=== PATIENT | male | born 2000 | race Hispanic/Latino ===

== ENCOUNTER 2020-07-28 21:43 | Emergency (ER) | payer BC, OTHER ==
[~2020-07-28] VITALS: Ht 152.4 cm; Wt 77.1 kg
[2020-07-28] MEDS ORDERED: HYDROCODONE/APAP 10MG-325MG TAB PO ONE (22:30)
[2020-07-28] MEDS ORDERED: HYDROCODONE/APAP 10MG-325MG TAB ONE (22:35)
[2020-07-29] MEDS ORDERED: ULTRAM 50MG50 MG PO (00:12)
[2020-07-29] MEDS ORDERED: VALIUM2 MG PO (00:12)
== END 2020-07-29 00:15 | disposition home or self-care (01) ==
LOC: ER 22:29
DX: M54.5 Low back pain (principal); W01.0XXA Fall on same level from slipping, tripping and stumbling without subsequent striking against object, initial encounter; Y93.01 Activity, walking, marching and hiking
CPT/HCPCS: 72100; 99283